=== PATIENT | female | born 1995 | race African-American/Black ===

== ENCOUNTER 2020-01-23 05:12 | Emergency (ER) | payer MEDICAID ==
[~2020-01-23] VITALS: Ht 160 cm; Wt 50.0 kg
[2020-01-23 05:17] VITALS: BP 127/82
[2020-01-23] MEDS ORDERED: LIDOCAINE 1%/EPI 1:100,000 10 ML VIAL IJ ONE (06:45)
[2020-01-23] MEDS ORDERED: BACITRACIN ZINC OINT UDPKT TOP ONE (06:45)
[2020-01-23] MEDS ORDERED: TETANUS, DIPHTHERIA, PERTUSSIS VAC/PF 0.5ML (>7YR OLD) IM ONE (07:15)
== END 2020-01-23 09:50 | disposition home or self-care (01) ==
LOC: ER 05:12
DX: S02.40EA Zygomatic fracture, right side, initial encounter for closed fracture (principal); Y08.89XA Assault by other specified means, initial encounter; Y93.89 Activity, other specified; Y92.89 Other specified places as the place of occurrence of the external cause; Y99.8 Other external cause status; J45.909 Unspecified asthma, uncomplicated
CPT/HCPCS: 12011; 70486; 73030; 73060; 90471; 90715; 99284; J3490

== ENCOUNTER 2020-07-30 06:28 | Emergency (ER) | payer MEDICAID ==
[~2020-07-30] VITALS: Ht 154.9 cm; Wt 50.0 kg
[2020-07-30] MEDS ORDERED: ACETAMINOPHEN 325MG TABLET PO STA (07:01)
[2020-07-30 10:21] VITALS: BP 113/70
== END 2020-07-30 10:22 | disposition home or self-care (01) ==
LOC: ER 06:28
DX: R07.89 Other chest pain (principal); J45.909 Unspecified asthma, uncomplicated; Y08.89XA Assault by other specified means, initial encounter; Y93.89 Activity, other specified; Y92.89 Other specified places as the place of occurrence of the external cause; Y99.8 Other external cause status
CPT/HCPCS: 36415; 71045; 81025; 84484; 99284

== ENCOUNTER 2021-01-15 19:38 | Emergency (ER) | payer MEDICAID ==
[~2021-01-15] VITALS: Ht 160 cm; Wt 49.8 kg
[2021-01-15] MEDS ORDERED: IBUP-2028 MT (21:54)
[2021-01-15] MEDS ORDERED: IBUPROFEN 400MG TABLET PO ONE (22:00)
[2021-01-15 22:02] VITALS: BP 114/77
== END 2021-01-15 22:13 | disposition home or self-care (01) ==
LOC: ER 19:38
DX: S09.93XA Unspecified injury of face, initial encounter (principal); R51.9 Headache, unspecified; J45.909 Unspecified asthma, uncomplicated; Z79.899 Other long term (current) drug therapy; Y04.0XXA Assault by unarmed brawl or fight, initial encounter; Y93.89 Activity, other specified; Y92.89 Other specified places as the place of occurrence of the external cause; Y99.8 Other external cause status
CPT/HCPCS: 99282